=== PATIENT | female | born 1965 | race Caucasian/White ===

== ENCOUNTER → 2017-06-05 | Outpatient (CLI) | payer BC, OTHER ==
--- NOTE | 2017-06-05 11:45 | CT ---
EXAMINATION TYPE: CT angio chest DATE OF EXAM: 06/05/2017 COMPARISON: NONE HISTORY: Shortness of breath CT DLP: 973 mGycm CONTRAST: CT chest with contrast and 3D reconstruction with MIP imaging is performed with IV Contrast, patient injected with 100 mL of Omnipaque 350. Contrast-enhanced CT of the chest was performed through the course of the pulmonary arteries with sergey g and mediastinal window settings submitted. 3D reconstruction with MIP imaging was also performed. Examination is considered suboptimal given poor opacification of the pulmonary arteries and their carmenza or tributaries. PULMONARY ARTERIES: Examination is considered suboptimal given poor opacification of the pulmonary a rteries and their major tributaries. A large central embolus is not identified with certainty. LUNGS: The lungs are clear and free of infiltrate. No evidence for atelectasis. No pulmonary nodule or mass is detected. No pleural effusion. MEDIASTINUM: Thoracic aorta is of normal caliber . The heart is not enlarged. No evidence for media stinal mass. No mediastinal lymph nodes greater than 1cm. HILAR STRUCTURES: No evidence for mass. No hilar lymph nodes greater than 1 cm. UPPER ABDOMEN: No significant abnormality is seen. IMPRESSION: 1. Examination is considered nondiagnostic with regards to exclusion of pulmonary embolism.
== END | disposition home or self-care (01) ==
LOC: RADCTMAIN 10:57
PROVIDERS: ATTEND Internal Medicine
DX: I82.409 Acute embolism and thrombosis of unspecified deep veins of unspecified lower extremity (principal)
CPT/HCPCS: 71275; Q9967

== ENCOUNTER → 2017-06-07 | Outpatient (CLI) | payer OTHER | END | disposition home or self-care (01) | LOC: LABWHC1 14:09 | PROVIDERS: ATTEND Internal Medicine | DX: R06.02 Shortness of breath (principal) | CPT/HCPCS: 36415; 85379 ==

== ENCOUNTER 2017-10-07 19:35 | Emergency (ER) | payer MEDICARE, OTHER ==
[2017-10-07 19:48] VITALS: BP 134/86; PULSE 114; RESP 20; TEMP 98.3
--- NOTE | 2017-10-07 21:12 | ED ---
General Adult HPI - General Chief complaint: Recheck/Abnormal Lab/Rx Stated complaint: [facility] sent for sepsis testing Time Seen by Provider: 10/07/17 20:59 Source: patient, RN notes reviewed Mode of arrival: ambulatory Limitations: no limitations - History of Present Illness Initial comments: 52-year-old female presents to the emergency department with chief complaint of abscess and concern for sepsis. She states she's had multiple abscesses over the last year and a half. She has one on the abdomen today. She states she's been told that they weren't staph infection in the past. She denies any fevers. She states her last year and half she's had increased shortness of breath as well. She states that she does have sepsis like this before. She states that there is been no increased redness or tenderness around the abscess. Patient states otherwise she has been well. She denies any nausea or vomiting with this. Patient denies any recent fever, chills, chest pain, back pain, abdominal pain, nausea vomiting, numbness or tingling, dysuria or hematuria, constipation or diarrhea, headaches or visual changes, or any other current symptoms. - Related Data Home Medications Medication Instructions Recorded Confirmed ARIPiprazole [Abilify] 2.5 mg PO DAILY 06/30/14 08/26/14 DULoxetine HCL [Cymbalta] 60 mg PO DAILY 06/30/14 08/26/14 Dextroamphetamine/Amphetamine 30 mg PO BID 06/30/14 08/26/14 [Adderall] traZODone HCL [Desyrel] 50 mg PO HS 06/30/14 08/26/14 oxyCODONE-APAP 10-325MG [Percocet 10 - 325 mg PO Q6HR PRN 07/01/14 08/26/14 10-325] ARIPiprazole [Abilify] 2 mg PO DAILY 08/26/14 08/26/14 Citalopram Hydrobromide [CeleXA] 40 mg PO DAILY 08/26/14 08/26/14 Previous Rx's Medication Instructions Recorded Sulfamethox-Tmp 800-160Mg [Bactrim 2 each PO Q12HR #56 tab 10/07/17 DS 800-160 mg] Allergies Allergy/AdvReac Type Severity Reaction Status Date / Time No Known Allergies Allergy Verified 10/07/17 19:48 Review of Systems ROS Statement: Those systems with pertinent positive or pertinent negative responses have been documented in the HPI. ROS Other: All systems not noted in ROS Statement are negative. Past Medical History Past Medical History: No Reported History, Fibromyalgia, GERD/Reflux Additional Past Medical History / Comment(s): IBS. History of Any Multi-Drug Resistant Organisms: MRSA Date of last positivie culture/infection: MDRO Source:: left breast abscess Past Surgical History: Back Surgery, Orthopedic Surgery Additional Past Surgical History / Comment(s): L3, S1 fusion. Past Anesthesia/Blood Transfusion Reactions: No Reported Reaction Past Psychological History: Anxiety, Depression Smoking Status: Former smoker Past Alcohol Use History: None Reported Past Drug Use History: Marijuana - Past Family History Sister(s) Additional Family Medical History / Comment(s): heart problems Father Family Medical History: Cancer Additional Family Medical History / Comment(s): abdominal Mother Family Medical History: Cancer Additional Family Medical History / Comment(s): breast cancer, colon cancer General Exam Limitations: no limitations General appearance: alert, in no apparent distress ENT exam: Present: normal exam, mucous membranes moist Neck exam: Present: normal inspection. Absent: tenderness, meningismus, lymphadenopathy Respiratory exam: Present: normal lung sounds bilaterally. Absent: respiratory distress, wheezes, rales, rhonchi, stridor Cardiovascular Exam: Present: regular rate, normal rhythm, normal heart sounds. Absent: systolic murmur, diastolic murmur, rubs, gallop, clicks GI/Abdominal exam: Present: soft, normal bowel sounds, other (Abscess noted to the right lower quadrant). Absent: distended, tenderness, guarding, rebound, rigid Neurological exam: Present: alert, oriented X3 Psychiatric exam: Present: normal affect, normal mood Skin exam: Present: warm, dry, intact, other (Small draining abscess to the left breast) Course Vital Signs 10/07/17 19:40 Temperature 98.3 F Pulse Rate 114 H Respiratory 20 Rate Blood Pressure 134/86 O2 Sat by Pulse 99 Oximetry Procedures - Procedures Initial comment: Procedure: Incision and drainage The skin overlying the abscess was prepped with Betadine, and anesthetized with 1% lidocaine without epinephrine. A #11 scalpel was then used to incise the abscess. Some purulent material was then extracted from the lesion. Wound culture obtained. Gauze dressing placed on top, The patient tolerated the procedure well. Medical Decision Making - Medical Decision Making 52-year-old presents for abscess, shortness of breath there is been going on for urine half as well as concerned that she may be septic. At this time patient's lab work is reviewed and stable. This time culture is pending of the wounds. At this time we did discuss finishing the antibiotics as prescribed we discussed follow-up return parameters. Patient shortness breath is sitting around over 1-1/2 years. Chest x-ray shows no acute process and d-dimer is negative. At this time we discussed continued outpatient with her doctor. Patient is in agreement with this plan all questions have been answered. She will be discharged. - Lab Data Result diagrams: 10/07/17 21:19 10/07/17 21:19 Lab Results 10/07/17 10/07/17 10/07/17 Range/Units 21:19 21:19 21:19 WBC 6.8 (3.8-10.6) k/uL RBC 3.96 (3.80-5.40) m/uL Hgb 12.9 (11.4-16.0) gm/dL Hct 38.5 (34.0-46.0) % MCV 97.1 (80.0-100.0) fL MCH 32.5 (25.0-35.0) pg MCHC 33.5 (31.0-37.0) g/dL RDW 12.7 (11.5-15.5) % Plt Count 363 (150-450) k/uL Neutrophils % 43 % Lymphocytes % 46 % Monocytes % 7 % Eosinophils % 2 % Basophils % 0 % Neutrophils # 2.9 (1.3-7.7) k/uL Lymphocytes # 3.2 (1.0-4.8) k/uL Monocytes # 0.5 (0-1.0) k/uL Eosinophils # 0.2 (0-0.7) k/uL Basophils # 0.0 (0-0.2) k/uL D-Dimer (<0.60) mg/L FEU Sodium 142 (137-145) mmol/L Potassium 3.9 (3.5-5.1) mmol/L Chloride 103 (98-107) mmol/L Carbon Dioxide 28 (22-30) mmol/L Anion Gap 11 mmol/L BUN 25 H (7-17) mg/dL Creatinine 0.80 (0.52-1.04) mg/dL Est GFR (CKD-EPI)AfAm >90 (>60 ml/min/1.73 sqM) Est GFR (CKD-EPI)NonAf 85 (>60 ml/min/1.73 sqM) Glucose 109 H (74-99) mg/dL Plasma Lactic Acid Rubén 1.4 (0.7-2.0) mmol/L Calcium 9.8 (8.4-10.2) mg/dL Total Bilirubin 0.2 (0.2-1.3) mg/dL AST 21 (14-36) U/L ALT 26 (9-52) U/L Alkaline Phosphatase 72 (38-126) U/L Total Protein 7.2 (6.3-8.2) g/dL Albumin 4.2 (3.5-5.0) g/dL // Range/Units 21:19 WBC (3.8-10.6) k/uL RBC (3.80-5.40) m/uL Hgb (11.4-16.0) gm/dL Hct (34.0-46.0) % MCV (80.0-100.0) fL MCH (25.0-35.0) pg MCHC (31.0-37.0) g/dL RDW (11.5-15.5) % Plt Count (150-450) k/uL Neutrophils % % Lymphocytes % % Monocytes % % Eosinophils % % Basophils % % Neutrophils # (1.3-7.7) k/uL Lymphocytes # (1.0-4.8) k/uL Monocytes # (0-1.0) k/uL Eosinophils # (0-0.7) k/uL Basophils # (0-0.2) k/uL D-Dimer 0.49 (<0.60) mg/L FEU Sodium (137-145) mmol/L Potassium (3.5-5.1) mmol/L Chloride (98-107) mmol/L Carbon Dioxide (22-30) mmol/L Anion Gap mmol/L BUN (7-17) mg/dL Creatinine (0.52-1.04) mg/dL Est GFR (CKD-EPI)AfAm (>60 ml/min/1.73 sqM) Est GFR (CKD-EPI)NonAf (>60 ml/min/1.73 sqM) Glucose (74-99) mg/dL Plasma Lactic Acid Rubén (0.7-2.0) mmol/L Calcium (8.4-10.2) mg/dL Total Bilirubin (0.2-1.3) mg/dL AST (14-36) U/L ALT (9-52) U/L Alkaline Phosphatase (38-126) U/L Total Protein (6.3-8.2) g/dL Albumin (3.5-5.0) g/dL - Radiology Data Radiology results: report reviewed, image reviewed Disposition Clinical Impression: Abdominal wall abscess, Left breast abscess, SOB (shortness of breath) on exertion Disposition: HOME SELF-CARE Condition: Stable Instructions: Abscess (ED), Dyspnea (ED) Additional Instructions: Please use medication as discussed. Please follow up with family doctor if symptoms have not improved over the next two days. Please return to the emergency room if your symptoms increase or worsen or for any other concerns. Prescriptions: Sulfamethox-Tmp 800-160Mg [Bactrim DS 800-160 mg] 2 each PO Q12HR #56 tab Referrals: Mee Amaral DO [Primary Care Provider] - 1-2 days Time of Disposition: 22:11
[2017-10-07 21:39] LABS: Basophils % (A) 0 %; Eosinophils # (A) 0.2 k/uL (0-0.7); Eosinophils % (A) 2 %; HCT 38.5 % (34.0-46.0); HGB 12.9 gm/dL (11.4-16.0); Lymphocytes # (A) 3.2 k/uL (1.0-4.8); Lymphocytes % (A) 46 %; MCH 32.5 pg (25.0-35.0); MCHC 33.5 g/dL (31.0-37.0); MCV 97.1 fL (80.0-100.0); Mean Platelet Volume 6.8; Monocytes # (A) 0.5 k/uL (0-1.0); Monocytes % (A) 7 %; Neutrophils # (A) 2.9 k/uL (1.3-7.7); Neutrophils % (A) 43 %; Platelet Count 363 k/uL (150-450); RBC 3.96 m/uL (3.80-5.40); RDW 12.7 % (11.5-15.5); WBC 6.8 k/uL (3.8-10.6)
--- NOTE | 2017-10-07 21:40 | XR ---
EXAMINATION TYPE: XR chest 2V DATE OF EXAM: 10/07/2017 COMPARISON: June 30, 2014 HISTORY: Shortness of breath TECHNIQUE: Frontal and lateral views of the chest are obtained. FINDINGS: There is no focal air space opacity, pleural effusion, or pneumothorax seen. The cardiac silhouette size is within normal limits. The osseous structures are intact. IMPRESSION: No acute cardiopulmonary process.
[2017-10-07 21:48] LABS: ALT 26 U/L (9-52); AST 21 U/L (14-36); Albumin 4.2 g/dL (3.5-5.0); Alkaline Phosphatase 72 U/L (38-126); Anion Gap 11 mmol/L; Blood Urea Nitrogen 25 mg/dL (7-17); Calcium 9.8 mg/dL (8.4-10.2); Carbon Dioxide 28 mmol/L (22-30); Chloride 103 mmol/L (98-107); Glucose 109 mg/dL (74-99); Potassium 3.9 mmol/L (3.5-5.1); Sodium 142 mmol/L (137-145); Total Bilirubin 0.2 mg/dL (0.2-1.3); Total Protein 7.2 g/dL (6.3-8.2)
== END 2017-10-07 22:23 | disposition home or self-care (01) ==
LOC: EC 19:35
DX: L02.211 Cutaneous abscess of abdominal wall (principal); N61.1 Abscess of the breast and nipple; R06.02 Shortness of breath; F32.9 Major depressive disorder, single episode, unspecified; F41.9 Anxiety disorder, unspecified; Z87.891 Personal history of nicotine dependence; Z79.899 Other long term (current) drug therapy; Z86.14 Personal history of Methicillin resistant Staphylococcus aureus infection; Z80.0 Family history of malignant neoplasm of digestive organs; Z80.3 Family history of malignant neoplasm of breast
CPT/HCPCS: 10060; 36415; 71046; 80053; 83605; 85025; 85379; 87040; 87070; 87205; 99282

== ENCOUNTER → 2017-10-20 | Outpatient (CLI) | payer MEDICARE, OTHER ==
--- NOTE | 2017-10-23 07:51 | MM ---
Reason for exam: clinical finding. Last mammogram was performed 4 years and 6 months ago. History: Patient had first child at age 35. Family history of breast cancer in mother at age 75. Physical Findings: Nurse did not find any significant physical abnormalities on exam. MG 3D Diag Mammo W/Cad SEVERIANO Bilateral CC and MLO view(s) were taken. Prior study comparison: April 22, 2013, bilateral digital screening mammo w/CAD. July 21, 2008, bilateral digital screening mammogram. The breast tissue is almost entirely fat. Stable benign calcifications. No significant new findings when compared with previous films. These results were verbally communicated with the patient and result sheet given to the patient on 10/20/17. ASSESSMENT: Benign, BI-RAD 2 RECOMMENDATION: Routine screening mammogram of both breasts in 1 year. Manage patient on a clinical basis.
== END | disposition home or self-care (01) ==
LOC: RADMAMWWP 14:59
PROVIDERS: ATTEND Family Medicine
DX: N60.09 Solitary cyst of unspecified breast (principal)
CPT/HCPCS: 77066; G0279

== ENCOUNTER → 2018-03-08 | Outpatient (CLI) | payer MEDICARE, OTHER ==
--- NOTE | 2018-03-08 15:38 | CT ---
EXAMINATION TYPE: CT angio chest DATE OF EXAM: 03/08/2018 COMPARISON: 06/05/2017 HISTORY: Shortness of breath x [address] DLP: 988.1 mGycm CONTRAST: CT chest with contrast and 3D reconstruction with MIP imaging is performed with IV Contrast, patient injected with 84 mL of Isovue 370. Contrast-enhanced CT of the chest was performed through the course of the pulmonary arteries with sergey g and mediastinal window settings submitted. 3D reconstruction with MIP imaging was also performed. PULMONARY ARTERIES: The pulmonary arteries and their major tributaries are patent. I do not see edd dence for sizable filling defect to suggest pulmonary embolic process. LUNGS: The lungs are clear and free of infiltrate. No evidence for atelectasis. No pulmonary nodule or mass is detected. No pleural effusion. MEDIASTINUM: Thoracic aorta is of normal caliber,however, evaluation is limited given timing of the contrast bolus. If there is concern for thoracic aortic pathology consider SUSAN. Correlate clinicall y . The heart is not enlarged. No evidence for mediastinal mass. No mediastinal lymph nodes greater than 1cm. HILAR STRUCTURES: No evidence for mass. No hilar lymph nodes greater than 1 cm. UPPER ABDOMEN: No significant abnormality is seen. IMPRESSION: 1. No evidence for Pulmonary embolism at this time.
== END | disposition home or self-care (01) ==
LOC: RADCTMAIN 15:06
PROVIDERS: ATTEND Internal Medicine
DX: I47.1 Supraventricular tachycardia (principal)
CPT/HCPCS: 71275; Q9967

== ENCOUNTER → 2018-03-14 | Outpatient (CLI) | payer MEDICARE, OTHER ==
--- NOTE | 2018-03-20 14:10 | EM ---
EVENT MONITOR HOLTER MONITOR: The patient was monitored for 24 hours. The baseline rhythm is a sinus mechanism with normal conduction. The average rate 101 beats per minute, minimum 69, maximum 159 beats per minute. Ventricular ectopic activity was present in the form of rare single PVCs. Supraventricular ectopic activity was present in the form of rare single PACs. Symptoms of shortness of breath did not correlate with any dysrhythmia. CONCLUSION: 1. Sinus tachycardia baseline rhythm. 2. Rare ventricular ectopic activity. 3. Rare supraventricular ectopic activity. 4. Symptoms did not correlate with any dysrhythmia. MMODL / IJN: [id number] /
== END | disposition home or self-care (01) ==
LOC: RADECHMAIN 12:07
PROVIDERS: ATTEND Internal Medicine
DX: I49.3 Ventricular premature depolarization (principal)
CPT/HCPCS: 93225; 93226

== ENCOUNTER → 2018-05-15 | Outpatient (CLI) | payer MEDICARE, OTHER ==
[2018-05-15 08:12] LABS: HGB 14.5 gm/dL (11.4-16.0); MCH 33.5 pg (25.0-35.0); MCHC 33.7 g/dL (31.0-37.0); MCV 99.4 fL (80.0-100.0); Mean Platelet Volume 6.7; Platelet Count 335 k/uL (150-450); RBC 4.32 m/uL (3.80-5.40); RDW 12.7 % (11.5-15.5); WBC 5.4 k/uL (3.8-10.6)
[2018-05-15 16:14] LABS: Anion Gap 9.9 mmol/L (4.00-12.00); Carbon Dioxide 26.1 mmol/L (21.6-31.8); Potassium 4.4 mmol/L (3.5-5.5)
== END | disposition home or self-care (01) ==
LOC: LABWHC1 07:27
PROVIDERS: ATTEND Internal Medicine Interventional Cardiology
DX: Z01.812 Encounter for preprocedural laboratory examination (principal); R07.9 Chest pain, unspecified; R06.02 Shortness of breath
CPT/HCPCS: 36415; 80051; 82565; 83735; 84520; 85027

== ENCOUNTER 2019-04-12 09:17 | Emergency (ER) | payer MEDICARE, OTHER ==
[2019-04-12] MEDS ORDERED: SODIUM CHLORIDE 0.9% 1,000 ML IV ONE (09:31)
--- NOTE | 2019-04-12 09:37 | ED ---
Skin/Abscess/FB HPI - General Chief complaint: Skin/Abscess/Foreign Body Stated complaint: Abcess Time Seen by Provider: 04/12/19 09:23 Source: patient, RN notes reviewed Mode of arrival: wheelchair Limitations: no limitations - History of Present Illness Initial comments: 53-year-old female presents emergency Department With chief complaint of lower abdominal abscess. Patient states that has been there for over a month but states that is now become more painful and unable to drain. She states that she is sweating profusely states that she's been having on and off fevers. Patient states that she's also had some other areas of abscesses. Patient states that she does have a history of MRSA. 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 - Related Data Home Medications Medication Instructions Recorded Confirmed Ibuprofen [Motrin] 800 mg PO TID 04/12/19 04/12/19 oxyCODONE HCL/ACETAMINOPHEN 1 tab PO TID 04/12/19 04/12/19 [Percocet 10-325 mg] Previous Rx's Medication Instructions Recorded Sulfamethox-Tmp 800-160Mg [Bactrim 1 each PO Q12HR #20 tab 04/12/19 Ds] Allergies Allergy/AdvReac Type Severity Reaction Status Date / Time No Known Allergies Allergy Verified 04/12/19 09:43 Review of Systems ROS Statement: Those systems with pertinent positive or pertinent negative responses have been documented in the HPI. ROS Other: All systems not noted in ROS Statement are negative. Past Medical History Past Medical History: Fibromyalgia, GERD/Reflux Additional Past Medical History / Comment(s): IBS, back pain History of Any Multi-Drug Resistant Organisms: MRSA Date of last positivie culture/infection: MDRO Source:: left breast abscess Past Surgical History: Back Surgery, Orthopedic Surgery Additional Past Surgical History / Comment(s): L3, S1 fusion. ; Shoulder arthroscopy, L foot surgery; colonoscopy Past Anesthesia/Blood Transfusion Reactions: No Reported Reaction Past Psychological History: Anxiety, Depression Smoking Status: Former smoker Past Alcohol Use History: None Reported Past Drug Use History: None Reported - Past Family History Sister(s) Additional Family Medical History / Comment(s): heart problems Father Family Medical History: Cancer Additional Family Medical History / Comment(s): abdominal Mother Family Medical History: Cancer Additional Family Medical History / Comment(s): breast cancer, colon cancer General Exam Limitations: no limitations General appearance: alert, in no apparent distress, other (Diaphoretic) Head exam: Present: atraumatic, normocephalic, normal inspection Eye exam: Present: normal appearance, PERRL, EOMI. Absent: scleral icterus, conjunctival injection, periorbital swelling Respiratory exam: Present: normal lung sounds bilaterally. Absent: respiratory distress, wheezes, rales, rhonchi, stridor Cardiovascular Exam: Present: normal rhythm, tachycardia, normal heart sounds. Absent: systolic murmur, diastolic murmur, rubs, gallop, clicks GI/Abdominal exam: Present: soft, tenderness (Tenderness and right lower abscess, suprapubic region over the area of abscess which is approximately 2 cm fluctuant), normal bowel sounds. Absent: distended, guarding, rebound, rigid Neurological exam: Present: alert Skin exam: Present: warm, intact Course Vital Signs 04/12/19 04/12/19 09:18 11:00 Temperature 99.4 F 97.5 F L Pulse Rate 119 H 107 H Respiratory 22 16 Rate Blood Pressure 177/102 123/83 O2 Sat by Pulse 98 93 L Oximetry Procedures - Incision & Drainage Consent Obtained: verbal consent Indication: Abscess Site: abdomen Size (cm): 2 Anesthetic Used: lidocaine 1% I&D Cleaning Method: Betadine Sterile Field Used?: No Scalpel Used: #11 I&D Drainage Obtained: Pus, Blood Culture Obtained?: Yes Patient Tolerated Procedure: well, no complications Medical Decision Making - Medical Decision Making 53-year-old female presented for abscess to her lower abdomen labwork was obtained secondary to patient being diaphoretic and tachycardic though vitals are improved labs are essentially unremarkable. Patient was given antibiotics emergency department and will be discharged on oral antibiotics. I&D was performed - Lab Data Result diagrams: 04/12/19 10:15 04/12/19 10:15 Lab Results 04/12/19 04/12/19 04/12/19 Range/Units 10:15 10:15 10:58 WBC 11.1 H (3.8-10.6) k/uL RBC 4.46 (3.80-5.40) m/uL Hgb 14.9 (11.4-16.0) gm/dL Hct 44.1 (34.0-46.0) % MCV 99.0 (80.0-100.0) fL MCH 33.5 (25.0-35.0) pg MCHC 33.8 (31.0-37.0) g/dL RDW 12.5 (11.5-15.5) % Plt Count 240 (150-450) k/uL Neutrophils % 83 % Lymphocytes % 11 % Monocytes % 4 % Eosinophils % 1 % Basophils % 0 % Neutrophils # 9.2 H (1.3-7.7) k/uL Lymphocytes # 1.2 (1.0-4.8) k/uL Monocytes # 0.5 (0-1.0) k/uL Eosinophils # 0.1 (0-0.7) k/uL Basophils # 0.0 (0-0.2) k/uL Sodium 137 (137-145) mmol/L Potassium 4.5 (3.5-5.1) mmol/L Chloride 105 (98-107) mmol/L Carbon Dioxide 18 L (22-30) mmol/L Anion Gap 14 mmol/L BUN 22 H (7-17) mg/dL Creatinine 0.71 (0.52-1.04) mg/dL Est GFR (CKD-EPI)AfAm >90 (>60 ml/min/1.73 sqM) Est GFR (CKD-EPI)NonAf >90 (>60 ml/min/1.73 sqM) Glucose 144 H (74-99) mg/dL Plasma Lactic Acid Rubén 1.5 (0.7-2.0) mmol/L Calcium 9.7 (8.4-10.2) mg/dL Total Bilirubin 0.9 (0.2-1.3) mg/dL AST 30 (14-36) U/L ALT 21 (9-52) U/L Alkaline Phosphatase 85 (38-126) U/L Total Protein 7.7 (6.3-8.2) g/dL Albumin 4.5 (3.5-5.0) g/dL Disposition Clinical Impression: Abdominal abscess Disposition: HOME SELF-CARE Condition: Stable Instructions (If sedation given, give patient instructions): Abscess Incision and Drainage (ED) Additional Instructions: Please return to the Emergency Department if symptoms worsen or any other concerns. Prescriptions: Sulfamethox-Tmp 800-160Mg [Bactrim Ds] 1 each PO Q12HR #20 tab Is patient prescribed a controlled substance at d/c from ED?: No Referrals: Mee Amaral DO [Primary Care Provider] - 1-2 days Time of Disposition: 11:59
[2019-04-12 10:31] LABS: Basophils % (A) 0 %; Eosinophils # (A) 0.1 k/uL (0-0.7); Eosinophils % (A) 1 %; HCT 44.1 % (34.0-46.0); HGB 14.9 gm/dL (11.4-16.0); Lymphocytes # (A) 1.2 k/uL (1.0-4.8); Lymphocytes % (A) 11 %; MCH 33.5 pg (25.0-35.0); MCHC 33.8 g/dL (31.0-37.0); Mean Platelet Volume 6.6; Monocytes # (A) 0.5 k/uL (0-1.0); Monocytes % (A) 4 %; Neutrophils # (A) 9.2 k/uL (1.3-7.7); Neutrophils % (A) 83 %; Platelet Count 240 k/uL (150-450); RBC 4.46 m/uL (3.80-5.40); RDW 12.5 % (11.5-15.5); WBC 11.1 k/uL (3.8-10.6)
[2019-04-12] MEDS ORDERED: MORPHINE SULFATE 4 MG/ML SYRINGE IVP STA (10:44)
[2019-04-12 10:54] LABS: ALT 21 U/L (9-52); AST 30 U/L (14-36); African American GFR (CKD) >90 (>60 ml/min/1.73 sqM); Albumin 4.5 g/dL (3.5-5.0); Alkaline Phosphatase 85 U/L (38-126); Anion Gap 14 mmol/L; Blood Urea Nitrogen 22 mg/dL (7-17); Calcium 9.7 mg/dL (8.4-10.2); Carbon Dioxide 18 mmol/L (22-30); Chloride 105 mmol/L (98-107); Glucose 144 mg/dL (74-99); Sodium 137 mmol/L (137-145); Total Bilirubin 0.9 mg/dL (0.2-1.3); Total Protein 7.7 g/dL (6.3-8.2)
[2019-04-12 11:01] LABS: Potassium 4.5 mmol/L (3.5-5.1)
[2019-04-12 11:42] VITALS: RESP 16
[2019-04-12] MEDS ORDERED: LIDOCAINE 1% INJ 10MG/ML (20 ML MDV) SQ ONE (11:42)
[2019-04-12 12:06] VITALS: BP 130/77; PULSE 90; TEMP 98.7
== END 2019-04-12 12:15 | disposition home or self-care (01) ==
LOC: EC 09:17
DX: L02.211 Cutaneous abscess of abdominal wall (principal); M79.7 Fibromyalgia; Z79.1 Long term (current) use of non-steroidal anti-inflammatories (NSAID); Z79.891 Long term (current) use of opiate analgesic; Z86.14 Personal history of Methicillin resistant Staphylococcus aureus infection; Z87.891 Personal history of nicotine dependence
CPT/HCPCS: 36415; 80053; 83605; 85025; 87040; 87070; 87205; 99283; 96365; 96375; 10060; J2270; J0696; J2001

== ENCOUNTER → 2021-01-08 | Outpatient (CLI) | payer MEDICARE, OTHER ==
--- NOTE | 2021-01-08 09:48 | MM ---
Reason for exam: clinical finding. Last mammogram was performed 3 years and 3 months ago. History: Patient had first child at age 35. Family history of breast cancer in mother at age 75. Physical Findings: Nurse did not find any significant physical abnormalities on exam. MG 3D Diag Mammo W/Cad SEVERIANO Bilateral CC and MLO view(s) were taken. Prior study comparison: October 20, 2017, bilateral MG 3d diag mammo w/cad SEVERIANO. April 22, 2013, bilateral digital screening mammo w/CAD. There are scattered fibroglandular densities. No correlate for left breast pain which has resolved. Clinical follow up recommended. Ultrasound can be considered if clinically warranted. These results were verbally communicated with the patient and result sheet given to the patient on 01/08/21. ASSESSMENT: Negative, BI-RAD 1 RECOMMENDATION: Routine screening mammogram of both breasts in 1 year.
== END | disposition home or self-care (01) ==
LOC: RADMAMWWP 08:20
PROVIDERS: ATTEND Family Medicine
DX: N64.89 Other specified disorders of breast (principal); Z80.3 Family history of malignant neoplasm of breast
CPT/HCPCS: 77066; G0279; 77062

== ENCOUNTER 2022-06-02 09:55 | Day surgery (SDC) | payer MEDICARE, OTHER ==
[2022-06-01 11:39] VITALS: BMI 48.6
[2022-06-02 10:28] VITALS: TEMP 97.3
[2022-06-02] MEDS: LACTATED RINGERS 1,000 ML IV SCH ×2 (10:35→11:13)
[2022-06-02] MEDS ORDERED: PROPOFOL 10 MG/ML 20 ML VIAL IV ONE (11:16)
[2022-06-02] MEDS ORDERED: LIDOCAINE 2% INJ 20 MG/ML (2 ML VIAL) ONE (11:16)
[2022-06-02] MEDS ORDERED: KETAMINE 10 MG/ML 20 ML VIAL ONE (11:16)
--- NOTE | 2022-06-02 11:23 | P.GSHP ---
History of Present Illness H&P Date: 06/02/22 Chief Complaint: Diarrhea, GERD This a 56-year-old female who presents today for EGD and colonoscopy. Patient's had issues with GERD and diarrhea. She also has a family history of colon cancer. Her mother and father both had colon cancer. Past Medical History Past Medical History: Asthma, Fibromyalgia, GERD/Reflux, Hypertension, Osteoarthritis (OA), Sleep Apnea/CPAP/BIPAP Additional Past Medical History / Comment(s): IBS, back pain, C PAP MACHINE , FREQUENT URINARY TRACT INFECTIONS, History of Any Multi-Drug Resistant Organisms: MRSA Date of last positivie culture/infection: MDRO Source:: left breast abscess Past Surgical History: Back Surgery, Orthopedic Surgery Additional Past Surgical History / Comment(s): L3, S1 fusion., L foot surgery; colonoscopy, RIGHT SHOULDER SURGERY X3, Past Anesthesia/Blood Transfusion Reactions: No Reported Reaction Smoking Status: Former smoker - Past Family History Sister(s) Additional Family Medical History / Comment(s): heart problems Father Family Medical History: Cancer Additional Family Medical History / Comment(s): abdominal Mother Family Medical History: Cancer Additional Family Medical History / Comment(s): breast cancer, colon cancer Medications and Allergies Home Medications Medication Instructions Recorded Confirmed Type Ibuprofen [Motrin] 800 mg PO TID 04/12/19 06/01/22 History ARIPiprazole [Abilify] 5 mg PO HS 06/01/22 06/02/22 History Acetaminophen Tab [Tylenol Tab] 1,000 mg PO Q6HR PRN 06/01/22 06/02/22 History Albuterol Inhaler [Ventolin Hfa 1 - 2 puff INHALATION BID 06/01/22 06/02/22 History Inhaler] Bisoprolol-Hctz 5-6.25 mg [Ziac 1 tab PO HS 06/01/22 06/02/22 History 5-6.25 MG] Citalopram Hydrobromide [CeleXA] 10 mg PO HS 06/01/22 06/02/22 History Cyclobenzaprine [Flexeril] 10 mg PO TID 06/01/22 06/02/22 History Fluticasone Propion/Salmeterol 2 puff INHALATION BID 06/01/22 06/02/22 History [Advair Hfa 115-21 Mcg Inhaler] Magnesium 1,000 mg PO HS 06/01/22 06/02/22 History Melatonin 10 mg PO HS 06/01/22 06/02/22 History Montelukast Sodium [Singulair] 10 mg PO HS 06/01/22 06/02/22 History oxyCODONE ER [OxyCONTIN] 15 mg PO QID 06/01/22 06/02/22 History traZODone HCL [Desyrel] 100 mg PO HS 06/01/22 06/02/22 History Allergies Allergy/AdvReac Type Severity Reaction Status Date / Time adhesive tape Allergy CAUSES Verified 06/02/22 10:12 REDNESS OF SKIN Latex, Natural Rubber Allergy Swelling Verified 06/02/22 10:12 OF LIPS WHEN BLOWING UP A BALLOON Surgical - Exam Vital Signs Temp Pulse Resp BP Pulse Ox 97.3 F L 94 16 156/79 96 06/02/22 10:26 06/02/22 10:26 06/02/22 10:26 06/02/22 10:26 06/02/22 10:26 - General well developed, well nourished, no distress - Eyes PERRL - ENT normal pinna - Neck no masses - Respiratory normal expansion - Cardiovascular Rhythm: regular - Abdomen Abdomen: soft, non tender Assessment and Plan Assessment: Diarrhea, GERD. We'll perform EGD.
--- NOTE | 2022-06-02 11:45 | P.OP ---
Date of Procedure: 06/02/22 Preoperative Diagnosis: Diarrhea GERD Postoperative Diagnosis: Antral gastritis Sliding hiatal hernia Mild esophagitis Diverticulosis Procedure(s) Performed: EGD Colonoscopy Anesthesia: MAC Surgeon: Vel Carlson Pathology: other (Antrum, esophagus) Condition: stable Disposition: PACU Description of Procedure: The patient's placed on the endoscopy table in the lateral position. She received IV sedation. The gastroscope placed oropharynx passed in the esophagus and into the stomach. Scope was placed through the pylorus. The first and second portion of the duodenum appeared normal. Scope was then brought back the antrum this. Mildly inflamed. A biopsies performed. The scope was then r etroflexed and the patient had a moderate sliding hiatal hernia. The GE junction was at 38 cm. The distal esophagus appeared minimally inflamed a biopsies performed. The proximal esophagus appeared normal. Scope was withdrawn. Next digital rectal exam was performed. This revealed no ebonized. The flexible colonoscope was then placed patient anus and passed throughout the entire colon. The ileocecal valve was visualized. The cecum, ascending and transverse colon appeared normal. In the descending and sigmoid colon is mild diverticular changes. The scope was then brought back the rectum and this appeared normal. Scope was withdrawn for patient.
[2022-06-02 11:52] VITALS: RESP 18
[2022-06-02 12:08] VITALS: BP 126/73; PULSE 89
== END 2022-06-02 12:35 | disposition home or self-care (01) ==
LOC: ORWHC2ENDO 09:55
PROVIDERS: ATTEND Surgery
DX: K29.50 Unspecified chronic gastritis without bleeding (principal); K44.9 Diaphragmatic hernia without obstruction or gangrene; K20.90 Esophagitis, unspecified without bleeding; K57.30 Diverticulosis of large intestine without perforation or abscess without bleeding; K21.9 Gastro-esophageal reflux disease without esophagitis; Z80.0 Family history of malignant neoplasm of digestive organs; J45.909 Unspecified asthma, uncomplicated; Z87.891 Personal history of nicotine dependence; I10 Essential (primary) hypertension; M19.90 Unspecified osteoarthritis, unspecified site; G47.30 Sleep apnea, unspecified; Z99.89 Dependence on other enabling machines and devices; M79.7 Fibromyalgia; Z86.14 Personal history of Methicillin resistant Staphylococcus aureus infection; Z87.440 Personal history of urinary (tract) infections; Z98.1 Arthrodesis status; Z98.890 Other specified postprocedural states; Z80.3 Family history of malignant neoplasm of breast; Z79.899 Other long term (current) drug therapy; Z91.040 Latex allergy status
CPT/HCPCS: 88305; 45378; 43239; J2704; J2001

== ENCOUNTER → 2022-06-20 | Outpatient (CLI) | payer MEDICARE, OTHER ==
--- NOTE | 2022-06-20 13:36 | CT ---
EXAMINATION TYPE: CT chest w con DATE OF EXAM: 06/20/2022 COMPARISON: 03/08/2018 HISTORY: c/o SOB CT DLP: 723.8 mGycm, Automated exposure control for dose reduction was used. CONTRAST: Performed injected with 70cc mL of Isovue 300. TECHNIQUE: Axial images were obtained at 5 mm thick sections. Reconstructed images are reviewed on [employer] computer in the coronal plane. FINDINGS: Portion of the thyroid visualized is normal. No suspicious lung nodules or focal infiltrates are present. No enlarged mediastinal or hilar adenopathy is evident. The ascending aorta diameter at the level o f the main pulmonary artery is 3.1 cm. The main pulmonary artery diameter at the bifurcation is 2.[address] sections are obtained through the upper abdomen. Abdomen is essentially unremarkable. IMPRESSIONS: 1. No acute pulmonary process.
== END | disposition home or self-care (01) ==
LOC: RADCTMAIN 12:26
PROVIDERS: ATTEND Family Medicine
DX: J47.9 Bronchiectasis, uncomplicated (principal); Z87.891 Personal history of nicotine dependence
CPT/HCPCS: 71260; Q9967

== ENCOUNTER → 2023-08-15 | Outpatient (CLI) | payer MEDICARE, OTHER ==
--- NOTE | 2023-08-15 15:16 | P.PN ---
Progress Note - Text Progress Note Date: 08/15/23 This is a very pleasant 57-year-old female patient was known to me and the patient is coming to see me in follow-up regarding obstructive sleep apnea. The patient typically sees me in the main office and currently she is coming into the sleep center to be further evaluated. Note that the patient was diagnosed having obstructive sleep apnea many years back. Her disease was moderate to severe with an AHI of 20 and the patient was being treated with a CPAP pressure of 613 cm of water. During her last evaluation, she stated that she was having difficulties with tolerating the higher pressure of CPAP. Based on that, I switch this patient to an APAP mode putting on the pressures of 5/13 cm of water. She was also receiving enteral 20 mg twice a day to maintain daytime stimulation. No side effects related to her Adderall. No tachycardia. No hypertension or chest pain. Note that since her last evaluation, the patient has not utilized her CPAP unit. Based on the compliance data that has been collected on the machine over the past 1 year, I noted that the patient has used the machine only 60 out of 365 days. He has achieved an average of 4.6 hours of CPAP use per night. P 95th percentile pressure was at 12.7 with a leak of 12 L/min and AHI of was down to 1.0. As such, treatment was successful as long as the patient was able to tolerate the treatment. She has nasal pillows. She has lost some weight and currently she is down to 318 pounds which is 7 to 8 pounds less compared to her last evaluation approximately a year ago. She has other comorbid conditions including asthma, depression, fibromyalgia, chronic back pain and the patient has underlying multilevel fusion of the lumbar spine. Current medication list includes Celexa, Abilify, trazodone, Singulair, Flexeril, magnesium, melatonin, either, Percocet, Tylenol and ibuprofen. Note that her Adderall dose is currently at 30 mg twice a day. She is taking Percocet 10/325 mg 4 times a day in addition to ibuprofen 600 mg on an as-needed basis. Her trazodone dose is 100 mg at bedtime and Celexa dose at 10 mg p.o. daily. Allergies of latex. Her current review of system 14 point review of system was done and the positive by 0 mentioned above history of present illness. He is feeling fatigued and tired. BP is 133/95, pulse is 100s, respirations 18 and a temperature 97.4. Weight is down 18 pounds and Orla score is 0 and a body mass index is 50 with a neck size of 17.5 inches. General appearance morbidly obese, comfortable no acute distress. The patient appeared well nourished and normally developed. Vital signs as documented. Head exam is unremarkable. No scleral icterus or corneal arcus noted. Neck is without jugular venous distension, thyromegaly, or carotid bruits. Carotid upstrokes are brisk bilaterally. Lungs are clear to auscultation and percussion. Cardiac exam reveals the PMI to be normally sized and situated. Rhythm is regular. First and second heart sounds normal. No murmurs, rubs or gallops. Abdominal exam reveals normal bowel sounds, no masses, no organomegaly and no aortic enlargement. Extremities are nonedematous and both femoral and pedal pulses are normal. Examination of the skin revealed no evidence of significant rashes, suspicious appearing nevi or other concerning lesions. Neurologically, the patient is awake and alert and the patient does not have any focal neurological deficit. Cranial nerves are essentially intact. Assessment Obstructive sleep apnea moderately severe with an AHI of 20. The patient is admitted CPAP therapy over the past 10 months. Noted prior to that and over the years the patient has been extremely compliant with a CPAP pressure of 13 cm of water. She developed difficulties in tolerating the CPAP machine and on her last evaluation in the office I switched her to an APAP mode pressures of 5/13 cm of water. Nevertheless, this was not successful. She is still on a Adderall l twice a day 30 mg on a daily basis. This has helped her with daytime stimulation. Fibromyalgia with chronic pain History of depression Bronchial asthma Chronic back pain with multilevel fusion in the lumbar spine Obesity with a BMI of 49.4 Plan Will proceed with a home sleep study to reevaluate the presence and severity of sleep apnea and decide if ongoing treatment is needed. Will continue Adderall for now which has helped this patient considerably for daytime stimulation. Encouraged further weight loss. Optimize sleep hygiene measures. Will continue to follow. The patient will see back in the main office at the pulmonary center.
== END ==
LOC: 3 N SLEEP 13:48
PROVIDERS: ATTEND Internal Medicine Critical Care Medicine
DX: G47.33 Obstructive sleep apnea (adult) (pediatric) (principal); E66.9 Obesity, unspecified; G89.29 Other chronic pain; J45.909 Unspecified asthma, uncomplicated; F32.A Depression, unspecified; F12.90 Cannabis use, unspecified, uncomplicated; M79.7 Fibromyalgia; M54.50 Low back pain, unspecified; Z68.42 Body mass index [BMI] 45.0-49.9, adult; Z91.048 Other nonmedicinal substance allergy status; Z91.040 Latex allergy status; Z79.899 Other long term (current) drug therapy; Z79.51 Long term (current) use of inhaled steroids; Z87.891 Personal history of nicotine dependence
CPT/HCPCS: 99211

== ENCOUNTER → 2023-08-24 | Outpatient (CLI) | payer MEDICARE | LOC: 3 N SLEEP 16:41 | PROVIDERS: ATTEND Internal Medicine Critical Care Medicine | DX: G47.33 Obstructive sleep apnea (adult) (pediatric) (principal); F12.90 Cannabis use, unspecified, uncomplicated; Z91.048 Other nonmedicinal substance allergy status; Z91.040 Latex allergy status; Z87.891 Personal history of nicotine dependence ==

== ENCOUNTER 2023-08-26 17:46 | Emergency (ER) | payer MEDICARE ==
--- NOTE | 2023-08-26 18:14 | ED ---
General Adult HPI - General Chief complaint: Shortness of Breath Stated complaint: SOB Time Seen by Provider: 08/26/23 18:03 Source: patient Mode of arrival: EMS Limitations: no limitations - History of Present Illness Initial comments: 57-year-old female presents to the emergency department for evaluation of shortness of breath. The shortness of breath is worse with exertion. She states that this has been going on for months and she is followed with her boiler installer and coin machine collector supervisor for this. She states that over the past few days she feels that it has been worse. She does have a history of fibromyalgia. She denies any chest pain, fevers, cough, congestion. - Related Data Home Medications Medication Instructions Recorded Confirmed Ibuprofen [Motrin] 800 mg PO TID 04/12/19 06/01/22 ARIPiprazole [Abilify] 5 mg PO HS 06/01/22 06/02/22 Acetaminophen Tab [Tylenol Tab] 1,000 mg PO Q6HR PRN 06/01/22 06/02/22 Albuterol Inhaler [Ventolin Hfa 1 - 2 puff INHALATION BID 06/01/22 06/02/22 Inhaler] Bisoprolol-Hctz 5-6.25 mg [Ziac 1 tab PO HS 06/01/22 06/02/22 5-6.25 MG] Citalopram Hydrobromide [CeleXA] 10 mg PO HS 06/01/22 06/02/22 Cyclobenzaprine [Flexeril] 10 mg PO TID 06/01/22 06/02/22 Fluticasone Propion/Salmeterol 2 puff INHALATION BID 06/01/22 06/02/22 [Advair Hfa 115-21 Mcg Inhaler] Magnesium 1,000 mg PO HS 06/01/22 06/02/22 Melatonin 10 mg PO HS 06/01/22 06/02/22 Montelukast Sodium [Singulair] 10 mg PO HS 06/01/22 06/02/22 oxyCODONE ER [OxyCONTIN] 15 mg PO QID 06/01/22 06/02/22 traZODone HCL [Desyrel] 100 mg PO HS 06/01/22 06/02/22 Allergies Allergy/AdvReac Type Severity Reaction Status Date / Time adhesive tape Allergy CAUSES Verified 06/02/22 10:12 REDNESS OF SKIN Latex, Natural Rubber Allergy Swelling Verified 06/02/22 10:12 OF LIPS WHEN BLOWING UP A BALLOON Review of Systems ROS Statement: Those systems with pertinent positive or pertinent negative responses have been documented in the HPI. ROS Other: All systems not noted in ROS Statement are negative. Past Medical History Past Medical History: Asthma, Fibromyalgia, GERD/Reflux, Hypertension, Osteoarthritis (OA), Sleep Apnea/CPAP/BIPAP Additional Past Medical History / Comment(s): IBS, back pain, C PAP MACHINE , FREQUENT URINARY TRACT INFECTIONS, History of Any Multi-Drug Resistant Organisms: MRSA Date of last positivie culture/infection: MDRO Source:: left breast abscess Past Surgical History: Back Surgery, Orthopedic Surgery Additional Past Surgical History / Comment(s): L3, S1 fusion., L foot surgery; colonoscopy, RIGHT SHOULDER SURGERY X3, Past Anesthesia/Blood Transfusion Reactions: No Reported Reaction Past Psychological History: Anxiety, Depression Smoking Status: Former smoker - Past Family History Sister(s) Additional Family Medical History / Comment(s): heart problems Father Family Medical History: Cancer Additional Family Medical History / Comment(s): abdominal Mother Family Medical History: Cancer Additional Family Medical History / Comment(s): breast cancer, colon cancer General Exam Limitations: no limitations General appearance: alert, in no apparent distress Head exam: Present: atraumatic, normocephalic, normal inspection Eye exam: Present: normal appearance, PERRL, EOMI. Absent: scleral icterus, conjunctival injection, periorbital swelling ENT exam: Present: normal exam, mucous membranes moist Neck exam: Present: normal inspection. Absent: tenderness, meningismus, lymphadenopathy Respiratory exam: Present: normal lung sounds bilaterally. Absent: respiratory distress, wheezes, rales, rhonchi, stridor, accessory muscle use Cardiovascular Exam: Present: regular rate, normal rhythm, normal heart sounds. Absent: systolic murmur, diastolic murmur, rubs, gallop, clicks GI/Abdominal exam: Present: soft, normal bowel sounds. Absent: distended, tenderness, guarding, rebound, rigid Extremities exam: Present: normal inspection, full ROM, normal capillary refill. Absent: tenderness, pedal edema, joint swelling, calf tenderness Back exam: Present: normal inspection Neurological exam: Present: alert, oriented X3 Psychiatric exam: Present: normal affect, normal mood Skin exam: Present: warm, dry, intact, normal color. Absent: rash Course Vital Signs 08/26/23 08/26/23 17:54 20:17 Pulse Rate 114 H 91 Respiratory 18 20 Rate Blood Pressure 152/117 137/81 O2 Sat by Pulse 98 97 Oximetry Medical Decision Making - Medical Decision Making Was pt. sent in by a medical professional or institution (, PA, LIQUOR DEPARTMENT MANAGER, urgent care, hospital, or senior care...) When possible be specific @ -No Did you speak to anyone other than the patient for history (EMS, parent, family, police, friend...)? What history was obtained from this source @ -No Did you review nursing and triage notes (agree or disagree)? Why? @ -I reviewed and agree with nursing and triage notes Were old charts reviewed (outside hosp., previous admission, EMS record, old EKG, old radiological studies, urgent care reports/EKG's, senior care records)? Report findings @ -No old charts were reviewed Differential Diagnosis (chest pain, altered mental status, abdominal pain women, abdominal pain men, vaginal bleeding, weakness, fever, dyspnea, syncope, headache, dizziness, GI bleed, back pain, seizure, CVA, palpatations, mental health, musculoskeletal)? @ -Differential Dyspnea: Coronary syndrome, arrhythmia, tamponade, asthma, COPD, pulmonary embolism, pneumonia, pneumothorax, pulmonary effusion, anaphylaxis, diabetic ketoacidosis, flailed chest, pulmonary contusion, diaphragmatic rupture, anemia, ne uromuscular, this is not meant to be an all-inclusive list. EKG interpreted by me (3pts min.). @ -EKG at 1832 shows sinus rhythm rate 89, KS 158, QRS 101, QT/QTc [id number] X-rays interpreted by me (1pt min.). @ -Chest x-ray shows no acute process. CT interpreted by me (1pt min.). @ -None done U/S interpreted by me (1pt. min.). @ -None done What testing was considered but not performed or refused? (CT, X-rays, U/S, labs)? Why? @ -None What meds were considered but not given or refused? Why? @ -None Did you discuss the management of the patient with other professionals (professionals i.e. , PA, LIQUOR DEPARTMENT MANAGER, lab, RT, psych nurse, elementary school social worker, restorative rehab aide, teacher, chief business officer, hospice case manager)? Give summary @ -No Was smoking cessation discussed for >3mins.? @ -No Was critical care preformed (if so, how long)? @ -No Were there social determinants of health that impacted care today? How? (Fozia elessness, low income, unemployed, alcoholism, drug addiction, transportation, low edu. Level, literacy, decrease access to med. care, mcc, rehab)? @ -No Was there de-escalation of care discussed even if they declined (Discuss DNR or withdrawal of care, Hospice)? DNR status @ -No What co-morbidities impacted this encounter? (DM, HTN, Smoking, COPD, CAD, Cancer, CVA, ARF, Chemo, Hep., AIDS, mental health diagnosis, sleep apnea, morbid obesity)? @ -None Was patient admitted / discharged? Hospital course, mention meds given and route, prescriptions, significant lab abnormalities, going to OR and other pertinent info. @ -Discharge. Patient presented to the emergency department for evaluation of shortness of breath. Patient is not acutely dyspneic on evaluation. She was on 2 L of oxygen satting at 98%. This was discontinued and the patient's oxygen remained 97%. Vitals otherwise stable. She is not having any chest pain. Laboratory studies obtained.CBC shows WBC 5.9, hemoglobin 13.0; CMP shows sodium 136, potassium 4.2, creatinine 0.72, negative troponin, BNP 118; UA unremarkab le, negative for COVID, influenza, RSV. Chest x-ray shows no acute process. Advised patient on findings of labs and chest x-ray. Patient will be discharged home with follow-up to her PCP and boiler installer as scheduled. Patient understanding agreeable plan. Patient stable at time discharge. Case discussed with Dr. Graham Undiagnosed new problem with uncertain prognosis? @ -No Drug Therapy requiring intensive monitoring for toxicity (Heparin, Nitro, Insulin, Cardizem)? @ -No Were any procedures done? @ -No Diagnosis/symptom? @ -Dyspnea Acute, or Chronic, or Acute on Chronic? @ -Acute on chronic Uncomplicated (without systemic symptoms) or Complicated (systemic symptoms)? @ -Uncomplicated Side effects of treatment? @ -No Exacerbation, Progression, or Severe Exacerbation? @ -No Poses a threat to life or bodily function? How? (Chest pain, USA, OR, pneumonia, PE, COPD, DKA, ARF, appy, cholecystitis, CVA, Diverticulitis, Homicidal, Suicidal, threat to staff... and all critical care pts) @ -No - Lab Data Result diagrams: 08/26/23 19:03 08/26/23 19:03 Lab Results 08/26/23 08/26/23 08/26/23 Range/Units 19:03 19: 19:03 WBC 5.9 (3.8-10.6) k/uL RBC 3.69 L (3.80-5.40) m/uL Hgb 13.0 (11.4-16.0) gm/dL Hct 37.4 (34.0-46.0) % MCV 101.6 H (80.0-100.0) fL MCH 35.2 H (25.0-35.0) pg MCHC 34.6 (31.0-37.0) g/dL RDW 11.9 (11.5-15.5) % Plt Count 262 (150-450) k/uL MPV 7.3 Neutrophils % 51 % Lymphocytes % 39 % Monocytes % 5 % Eosinophils % 2 % Basophils % 0 % Neutrophils # 3.0 (1.3-7.7) k/uL Lymphocytes # 2.3 (1.0-4.8) k/uL Monocytes # 0.3 (0-1.0) k/uL Eosinophils # 0.1 (0-0.7) k/uL Basophils # 0.0 (0-0.2) k/uL PT 9.8 L (10.0-12.5) sec INR 0.9 (<1.2) APTT 24.2 (22.0-30.0) sec Sodium (137-145) mmol/L Potassium (3.5-5.1) mmol/L Chloride (98-107) mmol/L Carbon Dioxide (22-30) mmol/L Anion Gap mmol/L BUN (7-17) mg/dL Creatinine (0.52-1.04) mg/dL Est GFR (CKD-EPI)AfAm (>60 ml/min/1.73 sqM) Est GFR (CKD-EPI)NonAf (>60 ml/min/1.73 sqM) Glucose (74-99) mg/dL Calcium (8.4-10.2) mg/dL Total Bilirubin (0.2-1.3) mg/dL AST (14-36) U/L ALT (4-34) U/L Alkaline Phosphatase (38-126) U/L Troponin I (0.000-0.034) ng/mL NT-Pro-B Natriuret Pep pg/mL Total Protein (6.3-8.2) g/dL Albumin (3.5-5.0) g/dL Urine Color Colorless Urine Appearance Clear (Clear) Urine pH 5.5 (5.0-8.0) Ur Specific Sumner 1.005 (1.001-1.035) Urine Protein Negative (Negative) Urine Glucose (UA) Negative (Negative) Urine Ketones Negative (Negative) Urine Blood Negative (Negative) Urine Nitrite Negative (Negative) Urine Bilirubin Negative (Negative) Urine Urobilinogen <2.0 (<2.0) mg/dL Ur Leukocyte Esterase Negative (Negative) Influenza Type A (PCR) (Not Detectd) Influenza Type B (PCR) (Not Detectd) RSV (PCR) (Not Detectd) SARS-CoV-2 (PCR) (Not Detectd) 08/26/23 08/26/23 08/26/23 Range/Units 19:03 19:03 19:03 WBC (3.8-10.6) k/uL RBC (3.80-5.40) m/uL Hgb (11.4-16.0) gm/dL Hct (34.0-46.0) % MCV (80.0-100.0) fL MCH (25.0-35.0) pg MCHC (31.0-37.0) g/dL RDW (11.5-15.5) % Plt Count (150-450) k/uL MPV Neutrophils % % Lymphocytes % % Monocytes % % Eosinophils % % Basophils % % Neutrophils # (1.3-7.7) k/uL Lymphocytes # (1.0-4.8) k/uL Monocytes # (0-1.0) k/uL Eosinophils # (0-0.7) k/uL Basophils # (0-0.2) k/uL PT (10.0-12.5) sec INR (<1.2) APTT (22.0-30.0) sec Sodium 136 L (137-145) mmol/L Potassium 4.2 (3.5-5.1) mmol/L Chloride 104 (98-107) mmol/L Carbon Dioxide 26 (22-30) mmol/L Anion Gap 6 mmol/L BUN 24 H (7-17) mg/dL Creatinine 0.72 (0.52-1.04) mg/dL Est GFR (CKD-EPI)AfAm >90 (>60 ml/min/1.73 sqM) Est GFR (CKD-EPI)NonAf >90 (>60 ml/min/1.73 sqM) Glucose 86 (74-99) mg/dL Calcium 9.3 (8.4-10.2) mg/dL Total Bilirubin 0.3 (0.2-1.3) mg/dL AST 23 (14-36) U/L ALT 24 (4-34) U/L Alkaline Phosphatase 62 (38-126) U/L Troponin I <0.012 (0.000-0.034) ng/mL NT-Pro-B Natriuret Pep 118 pg/mL Total Protein 6.6 (6.3-8.2) g/dL Albumin 4.3 (3.5-5.0) g/dL Urine Color Urine Appearance (Clear) Urine pH (5.0-8.0) Ur Specific Sumner (1.001-1.035) Urine Protein (Negative) Urine Glucose (UA) (Negative) Urine Ketones (Negative) Urine Blood (Negative) Urine Nitrite (Negative) Urine Bilirubin (Negative) Urine Urobilinogen (<2.0) mg/dL Ur Leukocyte Esterase (Negative) Influenza Type A (PCR) Not Detected (Not Detectd) Influenza Type B (PCR) Not Detected (Not Detectd) RSV (PCR) Not Detected (Not Detectd) SARS-CoV-2 (PCR) Not Detected (Not Detectd) Disposition Clinical Impression: Shortness of breath Disposition: HOME SELF-CARE Condition: Stable Instructions (If sedation given, give patient instructions): Asthma (ED), Shortness of Breath (ED) Additional Instructions: Please follow up with your primary care provider and boiler installer. Return to the emergency department for new or worsening symptoms. Is patient prescribed a controlled substance at d/c from ED?: No Referrals: Mee Amaral DO [REFERRING] - 1-2 days
[2023-08-26 19:09] LABS: Basophils % (A) 0 %; Eosinophils # (A) 0.1 k/uL (0-0.7); Eosinophils % (A) 2 %; HCT 37.4 % (34.0-46.0); Lymphocytes # (A) 2.3 k/uL (1.0-4.8); Lymphocytes % (A) 39 %; MCH 35.2 pg (25.0-35.0); MCHC 34.6 g/dL (31.0-37.0); MCV 101.6 fL (80.0-100.0); Mean Platelet Volume 7.3; Monocytes # (A) 0.3 k/uL (0-1.0); Monocytes % (A) 5 %; Neutrophils % (A) 51 %; Platelet Count 262 k/uL (150-450); RBC 3.69 m/uL (3.80-5.40); RDW 11.9 % (11.5-15.5); WBC 5.9 k/uL (3.8-10.6)
[2023-08-26 19:20] LABS: ALT 24 U/L (4-34); AST 23 U/L (14-36); African American GFR (CKD) >90 (>60 ml/min/1.73 sqM); Albumin 4.3 g/dL (3.5-5.0); Alkaline Phosphatase 62 U/L (38-126); Anion Gap 6 mmol/L; Blood Urea Nitrogen 24 mg/dL (7-17); Calcium 9.3 mg/dL (8.4-10.2); Carbon Dioxide 26 mmol/L (22-30); Chloride 104 mmol/L (98-107); Glucose 86 mg/dL (74-99); Non-African American GFR(CKD) >90 (>60 ml/min/1.73 sqM); Potassium 4.2 mmol/L (3.5-5.1); Sodium 136 mmol/L (137-145); Total Bilirubin 0.3 mg/dL (0.2-1.3); Total Protein 6.6 g/dL (6.3-8.2)
[2023-08-26 19:21] LABS: Appearance,Urine Clear (Clear); Bilirubin,Urine Negative (Negative); Blood,Urine Negative (Negative); Color,Urine Colorless; Glucose,Urine (UA) Negative (Negative); Ketones,Urine Negative (Negative); Leukocyte Esterase,Urine Negative (Negative); Nitrite,Urine Negative (Negative); PH, Urine 5.5 (5.0-8.0); Protein,Urine Negative (Negative); Specific Gravity,Urine 1.005 (1.001-1.035); Urobilinogen,Urine <2.0 mg/dL (<2.0)
[2023-08-26 19:23] LABS: INR 0.9 (<1.2); Partial Thromboplastin Time 24.2 sec (22.0-30.0); Prothrombin Time 9.8 sec (10.0-12.5)
--- NOTE | 2023-08-26 19:26 | XR ---
EXAMINATION TYPE: XR chest 2V DATE OF EXAM: 08/26/2023 6:51 PM CLINICAL INDICATION:Female, 57 years old with history of difficulty breathing; [facility] COMPARISON: 10/07/2017 TECHNIQUE: XR chest 2V. Frontal and lateral views of the chest.. FINDINGS: Lines/Tubes/Devices: No indwelling lines are seen. A couple of EKG snaps over the upper lungs. Heart/mediastinum: Heart size is normal. Mediastinum appears normal. Pulmonary vascularity: Not increased, Lungs/Pleura: There is no evidence of pleural effusion, focal consolidation, or pneumothorax. Lungs appear mildly hyperinflated with mild interstitial coarsening and some flattening of the diaphragm, f indings could be seen with mild COPD changes. Musculoskeletal: No acute osseous abnormality demonstrated in the limits of the exam. Degenerative c hanges of the spine and shoulders. Other findings: None. IMPRESSION: No acute cardiopulmonary abnormality.
[2023-08-26 19:29] LABS: NT-Pro-B-Type Natriuretic Pept 118 pg/mL
[2023-08-26] MEDS: LABETALOL 5 MG/ML VIAL MDV IVP STA (20:04)
[2023-08-26 20:21] VITALS: BP 137/81; PULSE 91; RESP 20
--- NOTE | 2023-09-04 22:21 | P.PCN ---
Date of Procedure: 08/24/23 Operative Findings: Home sleep study testing Date of services 08/24/2023 Pertinent history This is a 57-year-old female patient with known history of obstructive sleep apnea. The patient was being treated with CPAP pressure of 13 cm of water and the patient was quite compliant to the treatment. The patient was also taking Adderall for residual hypersomnia which improved her daytime alertness. The patient was being treated with an APAP mode pressures of 5/30 cm of water. Home sleep study was ordered to reevaluate the presence of sleep apnea and decide if ongoing therapy is needed. The patient's comorbid condition include fibromyalgia, multiple bronchial asthma, postural orthostatic tachycardia s yndrome, chronic anxiety and depression. Pertinent physical findings The patient has a body mass index of 49.4 Technical description The [employer] UG apnea link system was used to complete this home sleep study. This is a type III home sleep study This study showed a total recording duration of 1 hours and 35 minutes. The study was started at 7:46 PM and at that 9:22 PM. During this time, the patient had a total of 10 obstructive hypopneas and 4 apneas. As such, there is ongoing obstructive respiratory events. Nevertheless, the recording duration is limited and I am going to label this as a failed study and obviously this needs to be repeated for a more accurate measurement of the patient's obstructive apnea. The patient stated that the machine stopped working and this study needs to be repeated.
== END 2023-08-26 20:52 | disposition home or self-care (01) ==
LOC: SUPCPDRO 17:46 → EC 17:46
DX: R06.02 Shortness of breath (principal); I45.10 Unspecified right bundle-branch block; J45.909 Unspecified asthma, uncomplicated; K21.9 Gastro-esophageal reflux disease without esophagitis; I10 Essential (primary) hypertension; G47.30 Sleep apnea, unspecified; F41.9 Anxiety disorder, unspecified; F32.A Depression, unspecified; Z79.899 Other long term (current) drug therapy; Z79.51 Long term (current) use of inhaled steroids; Z20.822 Contact with and (suspected) exposure to COVID-19; Z91.040 Latex allergy status; Z88.8 Allergy status to other drugs, medicaments and biological substances
CPT/HCPCS: 36415; 71046; 80053; 81003; 83880; 84484; 85025; 85610; 85730; 87636; 93005; 99285

== ENCOUNTER → 2023-10-16 | Outpatient (CLI) | payer MEDICARE ==
--- NOTE | 2023-10-16 21:29 | MR ---
MRI brain without contrast. HISTORY: Memory loss COMPARISON: None. TECHNIQUE: Multiecho multiplanar images the brain were obtained without contrast. FINDINGS: On the T1-weighted sagittal images, the midline structures including the craniovertebral junction rel ationships are normal. The ventricles, basal cisterns and sulci over the convexities are within normal limits and there is n o mass effect or shift of the midline structures. There is moderate multifocal areas of abnormal increased signal intensity in the white matter of both cerebral hemispheres and within the left seferino on the T2 and FLAIR weighted images. These are nonspec ific abnormalities and are most commonly due to chronic ischemic white matter disease. Based on the diffusion-weighted images, there is no diffusion restriction or acute ischemic event. The posterior fossa including the brainstem, fourth ventricle and cerebellar pontine angles appear no rmal. The intraorbital contents appear normal and symmetric. Visualized paranasal sinuses and mastoid air c ells are well aerated. IMPRESSION: Nonspecific white matter abnormalities most commonly secondary to chronic ischemic white matter enamorado e. Demyelinating disease considered less likely but not entirely excluded.
== END | disposition home or self-care (01) ==
LOC: RADMRIMAIN 19:45
PROVIDERS: ATTEND Family Medicine
DX: R90.82 White matter disease, unspecified (principal); I67.82 Cerebral ischemia; R41.3 Other amnesia
CPT/HCPCS: 70551

== ENCOUNTER → 2024-05-27 | Outpatient (CLI) | payer MEDICARE ==
--- NOTE | 2024-05-28 08:13 | MM ---
Reason for Exam: Screening (asymptomatic). Last mammogram was performed 3 year(s) and 5 month(s) ago. Patient History: Menarche at age 13. First Full-Term at age 35. Late child-bearing (after 30). Postmenopausal. Patient has history of breast feeding. Mother had breast cancer, age 75. Risk Values: Ro 5 year model risk: 2.7%. NCI Lifetime model risk: 14.9%. Prior Study Comparison: 04/22/2013 Bilateral Screening Mammogram, [facility]. 10/20/2017 Bilateral Diagnostic Mammogram, [facility]. 01/08/2021 Bilateral Diagnostic Mammogram, [facility]. Tissue Density: There are scattered areas of fibroglandular density. Findings: Analyzed By CAD. There is no suspicious group of microcalcifications or new suspicious mass in either breast. Overall Assessment: Benign, BI-RAD 2 Management: Screening Mammogram of both breasts in 1 year. . Patient should continue monthly self-breast exams. A clinical breast exam by your physician is recommended on an annual basis. This exam should not preclude additional follow-up of suspicious palpable abnormalities. Note on Ro scores and lifetime risk: 1. A Ro score greater than 3% is considered moderate risk. If this is the case, consider specialist referral to assess eligibility for a risk reducing agent. 2. If overall lifetime risk for the development of breast cancer is 20% or higher, the patient may qualify for future screening with alternating mammogram and breast MRI. [facility], , 05/28/2024 8:10 AM. Electronically signed and approved by: Sen Becerra M.D. [facility]iolog[facility]
== END | disposition home or self-care (01) ==
LOC: RADMAMWWP 14:04
PROVIDERS: ATTEND Family Medicine
DX: Z12.31 Encounter for screening mammogram for malignant neoplasm of breast (principal); R92.323 Mammographic fibroglandular density, bilateral breasts; Z78.0 Asymptomatic menopausal state; Z80.3 Family history of malignant neoplasm of breast
CPT/HCPCS: 77063; 77067